=== PATIENT | female | born 1990 | race Caucasian/White ===

== ENCOUNTER 2020-05-05 12:24 | Emergency (ER) | payer OTHER ==
[~2020-05-05 12:24] MED LIST: FLEXERIL5 MG PO; PREDNISONE 20MG20 MG PO
[2020-05-05 13:16] LABS: BASOPHIL 0.3 % (0-2); EOSINOPHIL 1.8 % (0-5); LYMPHOCYTE 26.8 % (15-48); MCH 32.3 pg (25.0-31.0); MCHC 34.1 g/dL (32.0-36.0); MCV 94.8 fL (78.0-100.0); MONOCYTE 8.3 % (0-12); MPV 9.8 fL (6.0-9.5); NEUTROPHIL 62.5 % (41-80); NRBC 0; PLT 419 K/uL (150-400); RBC 4.64 M/uL (4.20-5.40); WBC 15.4 K/uL (4.0-10.5)
[2020-05-05 13:25] LABS: INR 1.2 (0.9-1.2); PROTHROMBIN TIME 14.4 SECONDS (11.4-13.6)
[2020-05-05 13:43] LABS: ALBUMIN 3.8 g/dL (3.4-5.0); BILIRUBIN - TOTAL 0.7 mg/dL (0.2-1.0); BUN/CREAT RATIO (CALC) 27.3 RATIO; C-REACTIVE PROTEIN 1.4 mg/dL (<=0.90); CREATININE 0.88 mg/dL (0.51-0.95); GLOBULIN (CALCULATION) 3.5 g/dL; TOTAL PROTEIN 7.3 g/dL (6.4-8.2)
[2020-05-05 13:56] LABS: CORONAVIRUS 2019 SARS-COV-2 NEGATIVE (NEGATIVE); INFLUENZA A NAA NEGATIVE (NEGATIVE)
[2020-05-05] MEDS ORDERED: PREDNISONE 20MG20 MG PO (15:55)
[2020-05-05] MEDS ORDERED: VIBRAMYCIN100 MG PO (15:55)
== END 2020-05-05 16:21 | disposition home or self-care (01) ==
LOC: FER 12:24
PROVIDERS: Emergency Medicine
DX: J18.9 Pneumonia, unspecified organism (principal); J45.901 Unspecified asthma with (acute) exacerbation; R42 Dizziness and giddiness; F17.210 Nicotine dependence, cigarettes, uncomplicated; Z20.822 Contact with and (suspected) exposure to COVID-19; Z88.1 Allergy status to other antibiotic agents; Z88.6 Allergy status to analgesic agent
CPT/HCPCS: 36415; 71250; 80053; 82550; 82728; 83605; 83615; 83735; 83880; 84145; 85025; 85610; 86140; 93005; 94640; J0696; J2930; U0002

== ENCOUNTER 2020-07-09 11:19 | Emergency (ER) | payer OTHER ==
[~2020-07-09 11:19] MED LIST changes: +VIBRAMYCIN100 MG PO
[2020-07-09 12:28] LABS: BASOPHIL 0.9 % (0-2); EOSINOPHIL 3.8 % (0-5); HGB 13.8 g/dl (12.5-16.0); LYMPHOCYTE 28.7 % (15-48); MCH 32.5 pg (25.0-31.0); MCHC 34.5 g/dL (32.0-36.0); MCV 94.3 fL (78.0-100.0); MONOCYTE 7.9 % (0-12); MPV 10.1 fL (6.0-9.5); NEUTROPHIL 58.4 % (41-80); NRBC 0; PLT 381 K/uL (150-400); RBC 4.24 M/uL (4.20-5.40); RDW 12.9 % (11.5-14.0); WBC 11.7 K/uL (4.0-10.5)
[2020-07-09 12:54] LABS: ALBUMIN 3.7 g/dL (3.4-5.0); BILIRUBIN - TOTAL 0.6 mg/dL (0.2-1.0); BUN/CREAT RATIO (CALC) 13.3 RATIO; CREATININE 0.75 mg/dL (0.51-0.95); GLOBULIN (CALCULATION) 3.1 g/dL; POTASSIUM 3.7 mmol/L (3.5-5.1); TOTAL PROTEIN 6.8 g/dL (6.4-8.2)
[2020-07-09] MEDS ORDERED: MEDROL 4MG DOSEP4 MG PO (13:21)
[2020-07-09 14:23] LABS: BILIRUBIN NEGATIVE (NEGATIVE); BLOOD NEGATIVE Ery/uL (NEGATIVE); CLARITY HAZY (CLEAR); COLOR YELLOW (YELLOW); GLUCOSE (U) NORMAL (NORMAL); LEUKOCYTES NEGATIVE Leu/uL (NEGATIVE); NITRITE NEGATIVE (NEGATIVE); PROTEIN NEGATIVE (NEGATIVE); UROBILINOGEN 0.2 mg/dL (0.2-1.0)
== END 2020-07-09 13:55 | disposition home or self-care (01) ==
LOC: FER 11:19
PROVIDERS: Emergency Medicine
DX: B34.9 Viral infection, unspecified (principal); J45.901 Unspecified asthma with (acute) exacerbation; H92.03 Otalgia, bilateral; H91.90 Unspecified hearing loss, unspecified ear; F17.200 Nicotine dependence, unspecified, uncomplicated; Z88.1 Allergy status to other antibiotic agents; Z88.6 Allergy status to analgesic agent; Z88.5 Allergy status to narcotic agent; Z20.822 Contact with and (suspected) exposure to COVID-19
CPT/HCPCS: 36415; 71045; 80053; 81003; 83605; 85025; 93005; 94640; 94664; J2930; J7030; U0002

== ENCOUNTER 2020-10-23 10:26 | Emergency (ER) | payer OTHER ==
[~2020-10-23 10:26] MED LIST changes: +MEDROL 4MG DOSEP4 MG PO
[2020-10-23 11:30] LABS: BASOPHIL 0.3 % (0-2); EOSINOPHIL 0 % (0-5); HCT 44.9 % (37.0-47.0); HGB 15.4 g/dl (12.5-16.0); LYMPHOCYTE 5.5 % (15-48); MCH 32.7 pg (25.0-31.0); MCHC 34.3 g/dL (32.0-36.0); MCV 95.3 fL (78.0-100.0); MONOCYTE 5.6 % (0-12); MPV 10.8 fL (6.0-9.5); NEUTROPHIL 87.8 % (41-80); NRBC 0; PLT 439 K/uL (150-400); RBC 4.71 M/uL (4.20-5.40); RDW 13.4 % (11.5-14.0)
[2020-10-23 11:36] LABS: WBC 32.6 K/uL (4.0-10.5)
[2020-10-23 11:59] LABS: ALBUMIN 3.8 g/dL (3.4-5.0); BILIRUBIN - TOTAL 0.5 mg/dL (0.2-1.0); BUN/CREAT RATIO (CALC) 16.4 RATIO; CREATININE 0.73 mg/dL (0.51-0.95); POTASSIUM 4.5 mmol/L (3.5-5.1); TOTAL PROTEIN 6.8 g/dL (6.4-8.2)
[2020-10-23 12:20] LABS: LACTIC ACID 4.2 mmol/L (0.4-1.9)
[2020-10-23 14:12] LABS: BILIRUBIN 1+ mg/dL (NEGATIVE); BLOOD NEGATIVE Ery/uL (NEGATIVE); CLARITY CLEAR (CLEAR); COLOR YELLOW (YELLOW); GLUCOSE (U) TRACE mg/dL (NORMAL); LEUKOCYTES NEGATIVE Leu/uL (NEGATIVE); NITRITE NEGATIVE (NEGATIVE); PROTEIN 1+ mg/dL (NEGATIVE); SPECIFIC GRAVITY >=1.030 (1.001-1.030); UROBILINOGEN 0.2 mg/dL (0.2-1.0); pH 5.5 (5.0-9.0)
[2020-10-23 14:21] LABS: URINARY WBC RARE
[2020-10-23 14:33] LABS: BACTERIA 2+
[2020-10-23 15:41] LABS: CORONAVIRUS 2019 SARS-COV-2 NEGATIVE (NEGATIVE); INFLUENZA A NAA NEGATIVE (NEGATIVE)
== END 2020-10-23 22:55 | disposition other institution (70) ==
LOC: FER 10:26
PROVIDERS: Internal Medicine
DX: A41.9 Sepsis, unspecified organism (principal); J18.9 Pneumonia, unspecified organism; E16.2 Hypoglycemia, unspecified; F17.210 Nicotine dependence, cigarettes, uncomplicated; I21.4 Non-ST elevation (NSTEMI) myocardial infarction; Z20.822 Contact with and (suspected) exposure to COVID-19; Z87.09 Personal history of other diseases of the respiratory system
CPT/HCPCS: 36415; 36600; 71275; 80053; 81001; 82803; 83605; 83880; 84145; 84484; 85025; 87040; 93005; 94640; J1940; J2405; J2543; J2550; J2930; J7030; U0002

== ENCOUNTER 2021-08-22 13:57 | Emergency (ER) | payer OTHER ==
[2021-08-22 15:33] LABS: BASOPHIL 0.8 % (0-2); EOSINOPHIL 2.7 % (0-5); HCT 43.9 % (37.0-47.0); HGB 14.7 g/dl (12.5-16.0); LYMPHOCYTE 31.3 % (15-48); MCH 30.6 pg (25.0-31.0); MCHC 33.5 g/dL (32.0-36.0); MCV 91.5 fL (78.0-100.0); MONOCYTE 6.9 % (0-12); MPV 10.7 fL (6.0-9.5); NRBC 0; PLT 447 K/uL (150-400); RDW 15.4 % (11.5-14.0); WBC 11.4 K/uL (4.0-10.5)
[2021-08-22 15:41] LABS: BUN/CREAT RATIO (CALC) 18.2 RATIO; CREATININE 0.88 mg/dL (0.51-0.95); POTASSIUM 3.6 mmol/L (3.5-5.1)
[2021-08-22 16:04] LABS: CORONAVIRUS 2019 SARS-COV-2 NEGATIVE (NEGATIVE); INFLUENZA A NAA NEGATIVE (NEGATIVE)
[2021-08-22] MEDS ORDERED: MEDROL 4MG DOSEP4 MG PO (16:55)
[2021-08-22] MEDS ORDERED: DIFLUCAN150 MG PO (16:55)
[2021-08-22] MEDS ORDERED: AMOX TR-K CLV1 EAC4 PO (16:55)
[2021-08-22] MEDS ORDERED: VENTOLIN HFA IN18 GM INH (16:55)
== END 2021-08-22 17:26 | disposition home or self-care (01) ==
LOC: FER 13:57
PROVIDERS: Nurse Practitioner Family
DX: J06.9 Acute upper respiratory infection, unspecified (principal); Z88.6 Allergy status to analgesic agent; Z91.013 Allergy to seafood; Z20.822 Contact with and (suspected) exposure to COVID-19; Z28.310 Unvaccinated for COVID-19
CPT/HCPCS: 36415; 71045; 80048; 84484; 85025; 93005; 94640; 94664; J1100; J7030; U0002